=== PATIENT | female | born 1950 | race Caucasian/White ===

== ENCOUNTER 2025-08-18 00:44 | Emergency (ER) | payer MEDICARE, SELFPAY ==
[2025-08-18 00:54] VITALS: BP 129/79
[2025-08-18 03:13] VITALS: BP 135/73
[2025-08-18 03:41] LABS: Urine Character Slightly Cloudy (Clear)
[2025-08-18 03:44] LABS: Hematocrit 34.3 % (37.0-47.0); Hemoglobin 12.0 g/dL (12.0-16.0); Mean Corp Hgb Conc. 35.0 g/dL (33.0-37.0); Mean Corpuscular Volume 90.5 fL (81.0-99.0); Nucleated Red Blood Cells % 0 %; Platelet Count 238 10^3/uL (130-400); Red Cell Dist. Width 12.5 % (11.5-14.5)
[2025-08-18 04:00] VITALS: BP 127/69
[2025-08-18 04:01] LABS: ALT (SGPT) 36 U/L (0-35); AST (SGOT) 49 U/L (14-36); Albumin 3.8 g/dl (3.5-5.0); Alkaline Phosphatase 157 U/L (38-126); Blood Urea Nitrogen 18 mg/dl (7-17); Calcium 9.1 mg/dl (8.4-10.2); Carbon Dioxide 22 mmol/L (22-30); Chloride 105 mmol/L (98-107); Glucose 143 mg/dl (70-99); Lipase 93 U/L (23-300); Potassium 3.7 mmol/L (3.5-5.1); Sodium 136 mmol/L (135-145); Total Protein 6.6 g/dl (6.3-8.2); eGFR > 60.00
[2025-08-18 05:44] LABS: Urine White Cell 16-20 /HPF (0-5)
[2025-08-18 05:46] LABS: Urine Squamous Cell 16-20 /LPF (Few)
--- NOTE | 2025-08-18 05:55 | ED.GENMED ---
History of Present Illness
General
Chief Complaint: Abdominal Symptoms
Source: patient and spouse
Exam Limitations: none
Time Seen by Provider: 08/18/25 05:29
Nursing documentation reviewed up to this point in time: agreed with
History of Present Illness
History of Present Illness:
HISTORY OF PRESENT ILLNESS
The patient is a 75-year-old female presenting with nausea and vomiting that occurred last night. The vomitus was described by the spouse as resembling stool in appearance and odor, causing concern. This episode occurred approximately four hours
after the patient had a dinner consisting of red sauce spaghetti, bread, roasted peppers, broccoli gulshan, and tiramisu cake, around 7:00 PM.
The back pain, which the patient describes as excruciating, began after a fall approximately a week ago. This pain is primarily located in the mid to upper back, particularly on the right side. The back pain comes and goes, nonradiating, no chest
pain no cough no shortness of breath. The patient also reports severe fatigue and imbalance issues, which began a few months ago, resulting in two falls. The first fall occurred in May. The condition has raised concerns about her gait,
initially attributed to a medication (Aricept) she was prescribed, which has since been discontinued due to urinary incontinence. She was switched to Namenda but due to ongoing fatigue, unsteady gait Namenda was discontinued a few days ago.
Additionally, the patient has been experiencing headaches, described as moderate to severe, associated with her known history of migraines. A previous MRI conducted on July 09, ordered by a neurologist she has been following with, revealed
cerebrovascular disease, moderate atrophy. Tonight after this episode of vomiting describes patient becoming pale and a brief episode of staring. Patient has full recall of this event. There was apparent no loss of consciousness, no
tremoring or shaking episode. Episode of near-syncope, characterized by pallor and an inability to communicate but without loss of consciousness.
She arrives via EMS. No recurrent nausea nor vomiting, no episodes of pallor nor staring.
Past History
Past History
ED Past Medical History: Psychiatric (Anxiety) and Other (Migraine headaches, mild cognitive impairment)
ED Past Surgical History: Gynecological (Partial hysterectomy)
Social History
Tobacco: Non-smoker
Alcohol: None
Personal:
Living: with family
Family History
Family History: Other (Noncontributory)
Phy Exam
Physical Exam
Physical Exam:
GENERAL: 75-year-old woman appears her stated age, bright and alert, pleasant, appears in no acute distress. Oriented x 3. Has full recall of recent events. Accompanied by her . Low-grade fever of 99.3 �F noted.
EYE: pupils equal and reactive. anicteric. The head is normocephalic, atraumatic.
NECK: Supple, nontender, no meningismus, no significant adenopathy.
ENT: posterior pharynx is clear, oral mucosa is moist. TM clear b/l, nares patent.
CARDIAC: Regular rate and rhythm. no murmur. No rub.
LUNGS: Clear breath sounds bilaterally, no acute respiratory distress, no wheezes/rales/rhonchi
ABDOMEN: Soft, nondistended, without focal tenderness, no r/g, no cvat. normoactive BS.
BACK: No midline bony tenderness. No palpable thoracic tenderness. Straight leg raising is negative bilaterally.
NEUROLOGICAL: Alert and oriented x3, no focal neuro deficits. Motor strength is 5/5 bilaterally. Gross sensation is intact.
SKIN: Mildly hot to touch and dry, normal color, skin intact. No rash.
MUSCULOSKELETAL: No C/C/E. peripheral pulses are full and equal b/l. No palpable tenderness.
PSYCH: Normal and appropriate interaction.
Course
Orders/Labs/Results
Orders:
Orders
08/18/25 03:27
Complete Blood Count/With Diff Urgent
Comprehensive Metabolic Panel Urgent
Lipase Urgent
Urinalysis Reflex To Culture Urgent
Date Specimen was Collected: 08/18/25
Time Specimen was Collected: 03:24
Urine Microscopic Reflex Cult Urgent
Urine Culture Urgent
STEFANI Source: U
Specimen Description:
Date Specimen was Collected: 08/18/25
Time Specimen was Collected: 03:24
08/18/25 05:54
CT Abd/pelvis W Iv Cont Urgent
Comment:
Reason For Exam: acute N/V, fever, elevated LFT's. back pain
CT Head W/o Iv Contrast Urgent
Comment:
Reason For Exam: headache, N/V, near syncope
08/18/25 06:01
0.9% Sodium Chloride 1000 ml [Nss] 1,000 ml IV BOLUS
Prochlorperazine [Compazine] 5 mg IV NOW STA
08/18/25 06:21
COVID-19 Antigen Urgent
Source: Nasal Swab
Influenza A+B Rapid Molecular Urgent
STEFANI Source: Nasal Swab
Specimen Description:
08/18/25 07:11
Fosfomycin [Monurol] 3 gm PO ONCE ONE
08/18/25 07:26
Acetaminophen 1000 MG ONCE Acetaminophen 1000MG/100Ml [Ofirmev] 1,000 mg in 100 ml IV ONCE
Acetaminophen IV Indication:: ED Narcotic Naive Pt-ONCE
Abnormal Lab Results
08/18/25
03:27
WBC 13.2 H 10^3/uL
(4.8-10.8)
RBC 3.79 L 10^6/uL
(4.20-5.40)
Hct 34.3 L %
(37.0-47.0)
MCH 31.7 H pg
(27.0-31.0)
Abs Immat Gran (auto) 0.1 H 10^3/uL
(0-0.05)
Absolute Neuts (auto) 11.5 H 10^3/uL
(1.4-6.5)
Absolute Lymphs (auto) 0.6 L 10^3/uL
(1.2-3.4)
Absolute Monos (auto) 1.0 H 10^3/uL
(0.1-0.6)
Neutrophils % 86.6 H %
(42.2-75.2)
Lymphocytes % 4.8 L %
(20.5-51.1)
BUN 18 H mg/dl
(7-17)
Creatinine 0.5 L mg/dL
(0.6-1.0)
Glucose 143 H mg/dl
(70-99)
AST 49 H U/L
(14-36)
ALT 36 H U/L
(0-35)
Alkaline Phosphatase 157 H U/L
(38-126)
Ur Occult Blood Reflex 1+ A
(Negative)
Urine RBC 7-10 A /HPF
(0-2)
Urine WBC (Reflex) 16-20 A /HPF
(0-5)
Urine Bacteria (Reflex) Many A
(Negative)
Urine Albumin (Reflex) 1+ A
(Neg - Trace)
08/18/25 03:27
08/18/25 03:27
Vital Signs
Initial and Last Documented VS:
Initial Vital Signs
Temp Pulse Resp BP Pulse Ox
99.3 F 100 18 129/79 96
08/18/25 00:54 08/18/25 00:54 08/18/25 00:54 08/18/25 00:54 08/18/25 00:54
Last Documented Vital Signs
Temp Pulse Resp BP Pulse Ox
98.2 F 94 16 115/55 97
08/18/25 07:26 08/18/25 07:26 08/18/25 07:26 08/18/25 07:26 08/18/25 07:26
MDM/Problems Addressed
Differential Diagnosis Includes:
DIFFERENTIAL DIAGNOSIS
The Differential Diagnosis includes, in no particular order and is not limited to:
1. Biliary obstruction.
2. Gastrointestinal bleed.
3. Kidney stone.
4. Urinary tract infection.
5. Brain lesion or stroke.
6. Medication side effect.
7. Migraine or tension headache.
8. Acute viral gastroenteritis.
9. Neurological disorder related to cerebral atrophy.
10. Vasovagal syncope.
MDM/Problems Addressed:
PROBLEM LIST
- Acute: Nausea with vomiting, back pain, fatigue, near-syncope episodes.
- Chronic: Cerebral atrophy.
PLAN
1. Administer IV fluids due to mild dehydration.
2. Perform a CT scan of the abdomen and pelvis to assess for kidney stones or any other abnormalities.
3. Prescribe Compazine (prochlorperazine) for headache and nausea management.
4. Monitor and address potential vasovagal episodes if they recur
5. Due to headache, near syncopal event tonight will check CT of the head.
Patient is noted to have low-grade fever and may be developing a viral syndrome, gastroenteritis.
Other consideration is UTI, pyelonephritis but currently without back pain. She has had no UTI symptoms.
Labs reveal mildly elevated white blood cell count of 13.2. Normal H&H. Minimally elevated BUN of 18 with normal creatinine 0.5.
Very minimally elevated LFTs, minimally elevated alkaline phosphatase. Abdomen is soft without appreciable tenderness but must consider episode of biliary colic tonight, must consider intermittent renal colic on the right.
She has had ongoing issues with unsteady gait, slowing gait, balance problems, all ongoing over the past few months. Following with neurologist. Medication changes. I did discuss that at this point, in the ED, I do not suspect I will be able to
identify exact cause of her balance issues/slow gait.
*Radiology
Radiology exam reviewed: radiology read reviewed
*Pulse Oximetry
SaO2: 97
Oxygen Mode of Delivery: Room air
Patient hypoxic: no
*[employer] Converter Operator Interpretation
Rate: normal
Interpretation: normal
Rhythm: sinus
*Critical Care Note
Total Time (30-74mins, 75-104mins- exclusive of procedures): Not Applicable
Update Note
Update Note:
07:10
Patient sleeping upon reevaluation. Awakens easily. Continues with headache but somewhat improved. No return of nausea. She has had no vomiting.
CT of the head shows chronic microvascular disease otherwise unremarkable.
CT abdomen pelvis is unremarkable. No cholecystitis nor pancreatitis, no obstructing renal stone. There is note of constipation without bowel obstruction.
Urinalysis revealing many bacteria, 16-20 WBCs, 7-10 RBCs but also note of 16-20 squamous epithelial cells. Concern for UTI versus contaminated specimen. She is noted to have low-grade fever, mildly elevated white blood cell count. I am concerned
for an occult UTI but CAT scan is reassuring, no evidence of pyelonephritis nor ureteric stone. She currently denies back pain, denies flank pain and abdomen remains soft without appreciable tenderness.
Will treat potential UTI with a one-time dose of Monurol and await urine culture.
Will give an IV dose of Tylenol.
If patient tolerating oral fluids without difficulty will plan for discharge to home with recommendations for prompt follow-up with her PCP as well as her neurologist.
ED Attending Note
-
Portions of this chart may have been created with voice recognition software.� Occasional wrong word or��sound alike� substitutions may have occurred due to the inherent limitations of voice recognition software.
Discharge Plan
Departure
Patient Disposition: Home (Routine Discharge)
Date of Disposition: 08/18/25
Time of Disposition: 07:29
Patient with high blood pressure during this ER visit?: No
Condition: Good
Discharge Problem:
acute nausea and vomiting, Vasovagal near-syncope, Bacteriuria, Low grade fever
Instructions: Clear Liquid Diet, Fever in adults (DC), Nausea and Vomiting, Adult (DC)
Referrals:
PRIVATE,PHYSICIAN [Family Provider, Internal Medicine] - Call in 1-3 days for appt
Interventions
Interventions:
*General Assessment Last Done: 08/18/25 04:03
*Neglect/Abuse Screening Last Done: 08/18/25 04:03
*ED COVID-19 Vaccine History Last Done: 08/18/25 04:03
*ED Influenza Vaccine History Last Done: 08/18/25 04:03
[facility] Fall Risk Assessment Tool Last Done: 08/18/25 04:03
*Risk Screen - Suicide (C-SSRS) Last Done: 08/18/25 00:54
VS-Jwogbw-Tswoswbcrw Assessment Last Done: 08/18/25 03:15
Discharge Date and Time
Print Language: [id number]
[2025-08-18] MEDS: COMPAZINE 5 MG IV (06:23)
[2025-08-18] MEDS: NSS 1000 IV (06:23)
[2025-08-18 06:59] LABS: COVID-19 Antigen Negative (Negative)
[2025-08-18] MEDS: MONUROL 3 GM PO (07:21)
[2025-08-18 07:26] VITALS: BP 115/55; BMI 22.1
[2025-08-18] MEDS: OFIRMEV 100 IV (07:34)
== END 2025-08-18 08:05 | disposition home or self-care (01) ==
LOC: EMR 00:44
PROVIDERS: EMERGENCY PHYSICIAN Emergency Medicine
DX: R11.2 Nausea with vomiting, unspecified (principal); E86.0 Dehydration; R55 Syncope and collapse; R82.71 Bacteriuria; R50.9 Fever, unspecified; K59.00 Constipation, unspecified; Z90.711 Acquired absence of uterus with remaining cervical stump; Z11.52 Encounter for screening for COVID-19
CPT/HCPCS: 96374; 96375; 96361; 99284; 70450; 74177; 80053; 81003; 81015; 83690; 85025; 87086; 87502; 87811; Q9967